=== PATIENT | female | born 1995 | race African-American/Black ===

== ENCOUNTER 2018-02-10 03:23 | Emergency (ER) | payer OTHER ==
[2018-02-10 04:41] LABS: ABS Basophils 0 10^3/ul (0-0.2); ABS Eosinophils 0.1 10^3/ul (0-0.6); ABS Lymphocytes 2.4 10^3/ul (1.0-4.8); ABS Monocytes 0.7 10^3/ul (0-0.8); ABS Neutrophils 3.9 10^3/ul (1.5-7.7); ABS Nucleated RBC 0 10^3/ul; Eosinophil % 1.7 % (0-6); Hematocrit 36 % (35-47); Hemoglobin 12.3 g/dl (12.0-16.0); Lymphocyte % 34.1 % (25-47); Mean Corpuscular HGB Conc 34 g/dl (31-36); Mean Corpuscular Hemoglobin 32 pg (27-31); Mean Corpuscular Volume 94 fL (80-97); Mean Platelet Volume 8.6 um3 (7.4-10.4); Nucleated Red Blood Cells % 0.1; Platelet Count 263 10^3/ul (150-450); Red Blood Count 3.88 10^6/ul (4.00-5.40); Red Cell Distribution Width 13 % (10.5-15); White Blood Count 7.1 10^3/ul (3.5-10.8)
[2018-02-10 04:57] LABS: EGFR Non-African American 106.7 (>60)
--- NOTE | 2018-02-10 05:28 | ED ---
Palpitations / Dysrhythmia - HPI Summary HPI Summary: This patient is a 22 year old F presenting to [facility] with a chief complaint of chest pressure and heaviness since 0200. She endorses anxiety, fluttering palpitations, and heavy caffeine use today. She denies taking control, and denies PMHx and Rx. Pt endorses sx have improved since [employer]. FHx CAD. - History of Current Complaint Chief Complaint: EDDysrhythmPalp Time Seen by Provider: 02/10/18 05:04 Hx Obtained From: Patient Onset/Duration: Sudden Onset, Lasting Hours, Still Present Timing: Constant Severity Initially: Moderate Severity Currently: Mild Character: Fluttering Aggravating: Caffeine Alleviating: Nothing Associated Signs & Symptoms: Chest Pain - pressure and tightness - Allergy/Home Medications Allergies/Adverse Reactions: Allergies Allergy/AdvReac Type Severity Reaction Status Date / Time No Known Allergies Allergy Verified 02/10/18 03:27 PMH/Surg Hx/FS Hx/Imm Hx Endocrine/Hematology History: Denies: Hx Diabetes Cardiovascular History: Denies: Hx Pacemaker/ICD Respiratory History: Denies: Hx Lung Cancer GI History: Denies: Hx Ileostomy History: Denies: Hx Dialysis Sensory History: Reports: Hx Contacts or Glasses Denies: Hx Legally Blind, Hx Deafness Opthamlomology History: Reports: Hx Contacts or Glasses Denies: Hx Legally Blind EENT History: Denies: Hx Deafness Neurological History: Denies: Hx Dementia Psychiatric History: Denies: Hx Schizophrenia Infectious Disease History: No Infectious Disease History: Denies: Traveled Outside the [place] in Last 30 Days - Family History Known Family History: Positive: Cardiac Disease - Social History Occupation: Student Lives: Dormitory/Roommates Alcohol Use: Weekly Hx Substance Use: Yes Substance Use Type: Reports: Excessive Caffeine Hx Tobacco Use: No Smoking Status (MU): Never Smoked Tobacco Review of Systems Negative: Fever Positive: Palpitations, Chest Pain Positive: no symptoms reported Positive: Anxious All Other Systems Reviewed And Are Negative: Yes Physical Exam - Summary Physical Exam Summary: Appearance: Well appearing, no pain distress Skin: warm, dry, reflects adequate perfusion Head/face: normal Eyes: EOMI, AMANDA ENT: normal Neck: supple, non-tender Respiratory: CTA, breath sounds present Cardiovascular: RRR, pulses symmetrical Abdomen: non-tender, soft Bowel: present Musculoskeletal: normal, strength/ROM intact Neuro: normal, sensory motor intact, A&Ox3 Triage Information Reviewed: Yes Vital Signs On Initial Exam: Initial Vitals Temp Pulse Resp BP Pulse Ox 97.4 F 61 15 128/84 100 02/10/18 03:25 02/10/18 03:25 02/10/18 03:25 02/10/18 03:25 02/10/18 03:25 Vital Signs Reviewed: Yes Diagnostics - Vital Signs Vital Signs Temp Pulse Resp BP Pulse Ox 02/10/18 04:14 58 15 132/84 99 02/10/18 04:00 58 15 100 02/10/18 03:44 57 19 133/86 98 02/10/18 03:25 97.4 F 61 15 128/84 100 - Laboratory Lab Results: Lab Results 02/10/18 02/10/18 02/10/18 Range/Units 04:29 04:29 04:29 WBC 7.1 (3.5-10.8) 10^3/ul RBC 3.88 L (4.00-5.40) 10^6/ul Hgb 12.3 (12.0-16.0) g/dl Hct 36 (35-47) % MCV 94 (80-97) fL MCH 32 H (27-31) pg MCHC 34 (31-36) g/dl RDW 13 (10.5-15) % Plt Count 263 (150-450) 10^3/ul MPV 8.6 (7.4-10.4) um3 Neut % (Auto) 54.0 (38-83) % Lymph % (Auto) 34.1 (25-47) % Coryell % (Auto) 9.8 H (0-7) % Eos % (Auto) 1.7 (0-6) % Baso % (Auto) 0.4 (0-2) % Absolute Neuts (auto) 3.9 (1.5-7.7) 10^3/ul Absolute Lymphs (auto) 2.4 (1.0-4.8) 10^3/ul Absolute Monos (auto) 0.7 (0-0.8) 10^3/ul Absolute Eos (auto) 0.1 (0-0.6) 10^3/ul Absolute Basos (auto) 0 (0-0.2) 10^3/ul Absolute Nucleated RBC 0 10^3/ul Nucleated RBC % 0.1 Sodium 140 (135-145) mmol/L Potassium 3.4 L (3.5-5.0) mmol/L Chloride 107 (101-111) mmol/L Carbon Dioxide 27 (22-32) mmol/L Anion Gap 6 (2-11) mmol/L BUN 13 (6-24) mg/dL Creatinine 0.70 (0.51-0.95) mg/dL Est GFR ( Amer) 129.1 (>60) Est GFR (Non-Af Amer) 106.7 (>60) BUN/Creatinine Ratio 18.6 (8-20) Glucose 100 (70-100) mg/dL Lactic Acid 0.3 L (0.5-2.0) mmol/L Calcium 10.0 (8.6-10.3) mg/dL Magnesium 1.9 (1.9-2.7) mg/dL Total Bilirubin 0.50 (0.2-1.0) mg/dL AST 15 (13-39) U/L ALT 8 (7-52) U/L Alkaline Phosphatase 47 (34-104) U/L Troponin I 0.00 (<0.04) ng/mL Total Protein 6.6 (6.4-8.9) g/dL Albumin 4.2 (3.2-5.2) g/dL Globulin 2.4 (2-4) g/dL Albumin/Globulin Ratio 1.8 (1-3) TSH Pending Beta HCG, Quant Pending Result Diagrams: 02/10/18 04:29 02/10/18 04:29 Lab Statement: Any lab studies that have been ordered have been reviewed, and results considered in the medical decision making process. - Radiology CXR Xray Interpretation: No Acute Changes Radiology Interpretation Completed By: ED Physician - Negative. Pending official imaging report. - EKG 0352 Cardiac Rate: NL - 66 EKG Rhythm: Sinus Rhythm ST Segment: Normal Ectopy: None EKG Interpretation: No acute changes. Course/Dx - Course Course Of Treatment: A 22-year-old F presents to the ED with a CC of fluttering palpitations since 0200. (+) chest pressure, tightness, anxiety. (-) current sx. Endorses heavy caffeine use today, denies PMHx and Rx. A CXR was (-). An EKG reveals NSR at 66 BPM with no acute changes. Labs and UA obtained and reviewed. - Diagnoses Differential Diagnosis/HQI/PQRI: Positive: Other - palpitations Provider Diagnoses: Palpitations Discharge - Sign-Out/Discharge Documenting (check all that apply): Patient Departure - discharge - Discharge Plan Condition: Stable Disposition: HOME Patient Education Materials: Heart Palpitations (ED) Referrals: [facility] @ [Outside] - 3 Days Additional Instructions: Return to the emergency department for any new or worsening symptoms. - Billing Disposition and Condition Condition: STABLE Disposition: Home - Attestation Statements Document Initiated by Prakash: Yes Documenting Scribe: Moisés Rodriguez Provider For Whom Prakash is Documenting (Include Credential): Dr. Daniel Starr MD Scribe Attestation: Moisés Rahman scribed for Dr. Daniel Starr MD on 02/10/18 at 0648. Scribe Documentation Reviewed: Yes Provider Attestation: The documentation as recorded by the Moisés gutierres accurately reflects the service I personally performed and the decisions made by me, Dr. Daniel Starr MD
[2018-02-10 07:46] VITALS: BP 115/88
--- NOTE | 2018-02-10 08:36 | RAD ---
INDICATION: Palpitations. COMPARISON: No relevant prior exams available on the [facility] PACS for comparison. TECHNIQUE: Dual energy PA and routine lateral views of the chest were obtained. REPORT: Clear lungs and pleural spaces. Negative for pneumothorax. The heart, pulmonary vasculature, and mediastinal contours are unremarkable. Unremarkable osseous structures and soft tissue contours. IMPRESSION: #. No evidence for acute intrathoracic disease. R0
== END 2018-02-10 07:46 | disposition home or self-care (01) ==
LOC: ED 03:23
DX: R00.2 Palpitations (principal); Z82.49 Family history of ischemic heart disease and other diseases of the circulatory system
CPT/HCPCS: 36415; 71046; 80053; 83605; 83735; 84443; 84484; 84702; 85025; 85379; 93005; 99282

== ENCOUNTER 2019-02-08 15:51 | Emergency (ER) | payer OTHER ==
[2019-02-08 16:05] VITALS: BP 119/79
--- NOTE | 2019-02-08 16:39 | UC ---
Respiratory Complaint HPI - HPI Summary HPI Summary: URI sx for a few days--many students at sick and she wants to be sure nothing other than uri viral illness---no fever /sob - History of Current Complaint Chief Complaint: UCRespiratory Stated Complaint: CHEST CONGESTION Time Seen by Provider: 02/08/19 16:26 Hx Obtained From: Patient Hx Last Menstrual Period: [id number] ?: No Onset/Duration: Sudden Onset, Lasting Days, Still Present Timing: Constant Pain Intensity: 0 Character: Cough: Nonproductive Aggravating Factors: Nothing Alleviating Factors: OTC Meds Associated Signs And Symptoms: Positive: URI - Allergies/Home Medications Allergies/Adverse Reactions: Allergies Allergy/AdvReac Type Severity Reaction Status Date / Time No Known Allergies Allergy Verified 02/08/19 16:07 Home Medications: Home Medications Meloxicam(NF) [Mobic(NF)] 7.5 mg PO DAILY PRN 02/08/19 [History Confirmed ] Norethindrone AC-Eth Estradiol [Loestrin 1-20 mg-Mcg] 1 tab PO DAILY [History Confirmed 02/08/19] PMH/Surg Hx/FS Hx/Imm Hx Previously Healthy: Yes - Surgical History Surgical History: Yes Surgery Procedure, Year, and Place: Oral - Family History Known Family History: Positive: Cardiac Disease - Social History Occupation: Student Lives: With Family Alcohol Use: Daily Substance Use Type: None Smoking Status (MU): Never Smoked Tobacco Review of Systems All Other Systems Reviewed And Are Negative: Yes Constitutional: Positive: Negative Skin: Positive: Negative Eyes: Positive: Negative ENT: Positive: Negative Respiratory: Positive: Cough Cardiovascular: Positive: Negative Gastrointestinal: Positive: Negative Genitourinary: Positive: Negative Motor: Positive: Negative Neurovascular: Positive: Negative Musculoskeletal: Positive: Negative Neurological: Positive: Negative Psychological: Positive: Negative Is Patient Immunocompromised?: No Physical Exam Triage Information Reviewed: Yes Appearance: Well-Appearing, No Pain Distress, Well-Nourished Vital Signs: Initial Vital Signs Temp 98.2 F 02/08/19 16:00 Pulse 85 02/08/19 16:00 Resp 16 02/08/19 16:00 BP 119/79 02/08/19 16:00 Pulse Ox 100 02/08/19 16:00 Vital Signs Reviewed: Yes Eye Exam: Normal Eyes: Positive: Conjunctiva Clear ENT Exam: Normal ENT: Positive: Normal ENT inspection, Hearing grossly normal, Pharynx normal, TMs normal, Uvula midline. Negative: Nasal congestion, Tonsillar swelling, Tonsillar exudate, Trismus, Muffled voice, Hoarse voice, Dental tenderness, Sinus tenderness Dental Exam: Normal Neck exam: Normal Neck: Positive: Supple, Nontender, No Lymphadenopathy Respiratory Exam: Normal Respiratory: Positive: Chest non-tender, Lungs clear, Normal breath sounds, No respiratory distress, No accessory muscle use Cardiovascular Exam: Normal Cardiovascular: Positive: RRR, No Murmur, Pulses Normal, Brisk Capillary Refill Musculoskeletal Exam: Normal Musculoskeletal: Positive: Strength Intact, ROM Intact, No Edema Neurological Exam: Normal Neurological: Positive: Alert, Muscle Tone Normal Psychological Exam: Normal Skin Exam: Normal Respiratory Course/Dx - Course Course Of Treatment: otc medications for symptom control, tylenol ibuprofen for fever body aches follow at [facility] as needed - Differential Dx/Diagnosis Provider Diagnosis: URI, acute Discharge ED - Sign-Out/Discharge Documenting (check all that apply): Patient Departure All imaging exams completed and their final reports reviewed: No Studies - Discharge Plan Condition: Stable Disposition: HOME Patient Education Materials: Upper Respiratory Infection (ED), Viral Syndrome ( ED) Referrals: [facility] @ [facility] [Outside] - If Needed - Billing Disposition and Condition Condition: STABLE Disposition: Home
== END 2019-02-08 16:45 | disposition home or self-care (01) ==
LOC: UCEAST 15:51
DX: J06.9 Acute upper respiratory infection, unspecified (principal)
CPT/HCPCS: 99211; G0463

== ENCOUNTER 2019-02-17 12:02 | Emergency (ER) | payer OTHER ==
[2019-02-17 12:10] VITALS: BP 115/76
--- NOTE | 2019-02-17 12:17 | UC ---
General HPI - HPI Summary HPI Summary: RN notes - Pt with cough and nasal drainage, muscle pain. Pt states she was here last week for this, and they recommended a recheck if she was not better by now. afebrile 23 yo female c/o approx 2 and 1/2 weeks of cough, sinus congestion, post nasal drip, general not feeling well. Seen here in 02/08/19, rx mucinex. However, sx not better and worse. No fever perse. No GI issues. No rash. No sob / hemoptysis. Cough mostly dry. Pt is a student at . - History of Current Complaint Chief Complaint: UCRespiratory Stated Complaint: COUGH Time Seen by Provider: 02/17/19 12:14 Hx Obtained From: Patient Hx Last Menstrual Period: 01/26/19 Pain Intensity: 4 - Allergy/Home Medications Allergies/Adverse Reactions: Allergies Allergy/AdvReac Type Severity Reaction Status Date / Time banana Allergy GI Upset Verified 02/17/19 12:10 Home Medications: Home Medications guaiFENesin [Mucinex] 1 tab PO ONCE PRN 02/17/19 [History Confirmed 02/17/19] PMH/Surg Hx/FS Hx/Imm Hx Previously Healthy: Yes - excercise induced asthma - Surgical History Surgical History: Yes Surgery Procedure, Year, and Place: Oral - Family History Known Family History: Positive: Cardiac Disease - Social History Alcohol Use: Occasionally Substance Use Type: None Smoking Status (MU): Never Smoked Tobacco Review of Systems All Other Systems Reviewed And Are Negative: Yes Constitutional: Positive: Other - see hpi Skin: Positive: Negative Eyes: Positive: Negative ENT: Positive: Other - see hpi Respiratory: Positive: Other - see hpi Cardiovascular: Positive: Negative Gastrointestinal: Positive: Negative Genitourinary: Positive: Negative Motor: Positive: Negative Neurovascular: Positive: Negative Musculoskeletal: Positive: Negative Neurological: Positive: Negative Psychological: Positive: Negative Is Patient Immunocompromised?: No Physical Exam Triage Information Reviewed: Yes Appearance: Well-Appearing - nad but looks tired, Well-Nourished Vital Signs: Initial Vital Signs Temp 98.9 F 02/17/19 12:06 Pulse 77 02/17/19 12:06 Resp 18 02/17/19 12:06 BP 115/76 02/17/19 12:06 Pulse Ox 99 02/17/19 12:06 Vital Signs Reviewed: Yes Eye Exam: Normal ENT: Positive: Pharyngeal erythema - mild post pharynx redness no sores no exudates uvula midline, Nasal congestion, TM dull - Both TM's dull, cazares. + light reflex Neck exam: Normal Neck: Positive: Supple, Nontender, No Lymphadenopathy Respiratory Exam: Other - + rhonchorus cough Respiratory: Positive: Lungs clear, Normal breath sounds, No respiratory distress, No accessory muscle use Cardiovascular Exam: Normal Cardiovascular: Positive: RRR, No Murmur, Pulses Normal, Brisk Capillary Refill Abdominal Exam: Normal, Other - mild scoliosis incidentally noted while sitting up (pt reports + hx) Abdomen Description: Positive: Nontender Musculoskeletal Exam: Normal - gait steady moves well Neurological Exam: Normal - grossly nonfocal Psychological Exam: Normal - conversing easily and appropriately Skin Exam: Normal - nondiaphoretic no visible or reported rash Course/Dx - Course Course Of Treatment: Reviewed coa / tx plan. Reviewed record from 02/08/19 While likely post viral or viral syndrome, continuity and severity of sx are concerning for possible bacterial component (ex mycoplasma). Also clinically + reactive airway component. Does have albuterol rx, will start using prior to excertional event(s). Will start azithromycin, and taper prednisone. D/w pt. Rx tessalon perles as well. F/u [facility] for resp recheck if possible, aware to be seen if worse or new problems arise. Questions as posed answered to the best of my ability. - Diagnoses Provider Diagnosis: Bronchitis Discharge ED - Sign-Out/Discharge Documenting (check all that apply): Patient Departure All imaging exams completed and their final reports reviewed: No Studies - Discharge Plan Condition: Stable Disposition: HOME Prescriptions: Azithromyxin JUNIOR (NF) [Z-Junior (Zithromax) 250 mg tabs #6] 2 tab PO .TODAY, THEN 1 DAILY #6 tab Benzonatate CAP* [Tessalon 100 MG CAP*] 100 mg PO TID PRN #30 cap PRN Reason: Cough predniSONE TAB* [Deltasone 10 MG TAB*] 10 mg PO DAILY #20 tab Patient Education Materials: Acute Bronchitis (ED) Referrals: [facility] @ [facility] [Outside] No Primary Care Phys,NOPCP [Primary Care Provider] - Additional Instructions: Hydrate. Seek medical attention for worse or new problems. - Billing Disposition and Condition Condition: STABLE Disposition: Home
== END 2019-02-17 13:04 | disposition home or self-care (01) ==
LOC: UCEAST 12:02
DX: J45.909 Unspecified asthma, uncomplicated (principal); Z91.018 Allergy to other foods
CPT/HCPCS: 99212; G0463

== ENCOUNTER 2019-07-22 13:55 | Emergency (ER) | payer OTHER ==
[2019-07-22 16:19] VITALS: BP 155/94
[2019-07-22 16:33] LABS: Influenza A Molecular Negative (Negative); Influenza B Molecular Negative (Negative)
--- NOTE | 2019-07-22 17:19 | UC ---
FLU HPI - HPI Summary HPI Summary: ONSET YESTERDAY OF COUGH. TODAY SHE DEVELOPED LOW-GRADE TEMPERATURE 100.1, BODY ACHES AND HEADACHE. NO SORE THROAT OR EAR PAIN. WAS IN [facility] FROM 07/12/2019 [id number]. WENT BY BUS. WAS NOT IN ANY AIRPORTS OR TRAIN STATIONS. SHE WAS ON A FIELD TRIP WITH OTHER THEATER STUDENTS FROM [place] AND STATES SHE DID SEE SOME SHOWS. - History of Current Complaint Chief Complaint: UCGeneralIllness Stated Complaint: FEVER COUGH BODYACHES Time Seen by Provider: 07/22/19 16:25 Hx Obtained From: Patient Hx Last Menstrual Period: 2 weeks ago Onset/Duration: Gradual Onset, Lasting Days, Still Present Severity Currently: Moderate Severity Initially: Moderate Pain Intensity: 3 Pain Scale Used: 0-10 Numeric Associated Signs & Symptoms: Positive: Fever, Myalgia, Cough, Headache. Negative: Sore Throat - Allergy/Home Medications Allergies/Adverse Reactions: Allergies Allergy/AdvReac Type Severity Reaction Status Date / Time banana Allergy GI Upset Verified 07/22/19 16:19 Home Medications: Home Medications Norethindrone AC-Eth Estradiol [Loestrin 1-20 mg-Mcg] 1 tab PO DAILY [History Confirmed 07/22/19] PMH/Surg Hx/FS Hx/Imm Hx Respiratory History: Asthma - Surgical History Surgical History: Yes Surgery Procedure, Year, and Place: Oral - Family History Known Family History: Positive: Cardiac Disease - Social History Alcohol Use: Occasionally Substance Use Type: None Smoking Status (MU): Never Smoked Tobacco Review of Systems All Other Systems Reviewed And Are Negative: Yes Constitutional: Positive: Fever, Fatigue ENT: Positive: Negative Respiratory: Positive: Cough Cardiovascular: Positive: Negative Gastrointestinal: Positive: Negative Musculoskeletal: Positive: Myalgia Neurological/Mental Status: Positive: Headache Physical Exam Triage Information Reviewed: Yes Appearance: Well-Appearing, No Pain Distress, Well-Nourished Vital Signs: Initial Vital Signs Temp 99.1 F 07/22/19 16:15 Pulse 116 07/22/19 16:15 Resp 17 07/22/19 16:15 BP 155/94 07/22/19 16:15 Pulse Ox 97 07/22/19 16:15 Laboratory Tests 07/22/19 16:21 Influenza A (Rapid) Negative Influenza B (Rapid) Negative Vital Signs Reviewed: Yes Eyes: Positive: Conjunctiva Clear ENT: Positive: Hearing grossly normal - WE ARE WAITING FOR 6 SO [facility] IN EST[facility], Pharynx normal, TMs normal Neck: Positive: Supple - Normal pharynx normal Respiratory Exam: Normal Cardiovascular: Positive: Tachycardia Abdomen Description: Positive: Soft - Ears are Musculoskeletal: Positive: No Edema Neurological: Positive: Alert Psychological: Positive: Age Appropriate Behavior Skin: Negative: Rashes - Edema Flu Course/Dx - Course Course Of Treatment: FLU SWAB NEGATIVE. GIVEN PATIENT'S RECENT TRAVEL TO [facility] AND FLU-LIKE SYMPTOMS THERE IS CONCERN FOR COVID-19. INFECTION CONTROL AT [facility] (MALIA DANIELE) WAS CONTACTED. SHE CONTACTED THE HD. PATIENT WAS APPROVED FOR TESTING FOR COVID -19 AND A FULL VIRAL PANEL. PATIENT HAS BEEN RECOMMENDED TO QUARANTINE AT HOME. THE HEALTH DEPARTMENT WILL BE CONTACTING HER TO DISCUSS HER SELF QUARANTINE PARAMETERS. SHE IS TO CALL 911 IF SHE DEVELOPS ANY RESPIRATORY DISTRESS. - Differential Dx/Diagnosis Provider Diagnosis: Flu-like symptoms Discharge ED - Sign-Out/Discharge Documenting (check all that apply): Patient Departure All imaging exams completed and their final reports reviewed: No Studies - Discharge Plan Condition: Stable Disposition: HOME Patient Education Materials: Viral Syndrome (ED) Referrals: [facility] @ [facility] [Outside] - If Needed Additional Instructions: FLU SWAB NEGATIVE. TESTING DONE FOR OTHER MISCELLANEOUS VIRUSES WELL CORONAVIRUS. REST, HYDRATE, OTC MEDICATIONS NEEDED FOR FEVER AND DISCOMFORT. I RECOMMEND YOU SELF QUARANTINE IN YOUR HOME. THE HEALTH DEPARTMENT WILL BE CONTACTING YOU LATER TO DISCUSS YOUR SELF QUARANTINE PARAMETERS. CALL 911 IF YOU DEVELOP ANY RESPIRATORY DISTRESS. - Billing Disposition and Condition Condition: STABLE Disposition: Home
[2019-07-22] MEDS ORDERED: Acetaminophen TAB* 325 MG PO ONE ×2 (19:19→21:08)
== END 2019-07-22 21:15 | disposition home or self-care (01) ==
LOC: UCEAST 13:55
DX: R05 Cough (principal); R50.9 Fever, unspecified; R53.83 Other fatigue; J45.909 Unspecified asthma, uncomplicated; M79.10 Myalgia, unspecified site; Z91.018 Allergy to other foods
CPT/HCPCS: 99213; A9270-GY; G0463